=== PATIENT | female | born 1940 | race American Indian/Alaskan Native ===

== ENCOUNTER 2016-09-07 21:08 | Inpatient (IN) | payer MEDICARE, OTHER ==
[2016-09-07] MEDS ORDERED: NACL 0.9% 1000 ML 1,000 ML IV ONE (22:36)
[2016-09-07 22:43] LABS: Hematocrit 41.1 % (30.3-42.9); Hemoglobin 12.7 gm/dl (10.1-14.3); Mean Corpuscular HGB Conc 31 % (30-34); Mean Corpuscular Hemoglobin 29 pg (28-32); Mean Corpuscular Volume 93 fl (79-97); Platelet Count 204 K/mm3 (140-440); Red Blood Count 4.42 M/mm3 (3.65-5.03); Red Cell Distribution Width 14.6 % (13.2-15.2); White Blood Count 9.1 K/mm3 (4.5-11.0)
[2016-09-07 22:45] LABS: Basophils % (Auto) 0.4 % (0.0-1.8); Eosinophils % (Auto) 0.4 % (0.0-4.3)
[2016-09-07 23:33] LABS: Alanine Aminotransferase 10 units/L (7-56); Albumin 3.7 g/dL (3.9-5); Albumin/Globulin Ratio 1.1 %; Alkaline Phosphatase 57 units/L (35-129); Anion Gap 23 mmol/L; BUN/Creatinine Ratio 22.85; Bilirubin,Total 0.3 mg/dL (0.1-1.2); Blood Urea Nitrogen 16 mg/dL (7-17); Calcium 10.1 mg/dL (8.4-10.2); Carbon Dioxide 16 mmol/L (22-30); Chloride 101.6 mmol/L (98-107); Glucose 102 mg/dL (65-100); Magnesium 2.2 mg/dL (1.7-2.3); Potassium 4.1 mmol/L (3.6-5.0); Sodium 136 mmol/L (137-145); Total Protein 7.1 g/dL (6.3-8.2)
--- NOTE | 2016-09-08 01:14 | Cat Scan Report ---
FINAL REPORT PROCEDURE: CT HEAD/BRAIN WO CON TECHNIQUE: Computerized tomography of the head was performed without contrast material. HISTORY: ams COMPARISON: 03/26/2016 FINDINGS: Skull and scalp: Normal. Paranasal sinuses: Normal. Ventricles and subarachnoid spaces: There is advanced central and cortical atrophy. There is no hydrocephalus or asymmetry.. Cerebrum: No evidence of hemorrhage, acute infarction or mass. There is chronic deep white matter ischemic gliosis bilaterally. Cerebellum and brainstem: No evidence of hemorrhage, acute infarction or mass. Vasculature: Normal. Comments: None. IMPRESSION: There are chronic involutional changes. There is no acute abnormality.
--- NOTE | 2016-09-08 01:17 | Emergency Department Report ---
ED Altered Mental Status HPI - General Chief Complaint: Altered Mental Status Stated Complaint: MH EVAL/AMS Time Seen by Provider: 09/07/16 22:30 Source: EMS Mode of arrival: Stretcher Limitations: Altered Mental Status - History of Present Illness Initial Comments: 75-year-old female with a past medical history of dementia, hypertension, and multiple myeloma presents to the hospital with altered mental status. Patient is currently nonverbal and will not follow commands. She is however alert. Per EMS record patient was found at the personal care slumped in over in the chair leaning to the left lung notable left-sided facial droop and drooling. Patient was conscious but unresponsive. Patient difficult to follow commands. Staff reports that this is an alteration from her normal baseline set on 7:45 PM. Patient normally walks and responds appropriately. Patient came more responsive in route but still confused. EMS recorded a blood pressure 90/46 with repeat 96/42. Pt received 450ml normal saline in route. - Related Data Home Medications Medication Instructions Recorded Confirmed Last Taken Quetiapine Fumarate [SEROquel] 25 mg PO QHS 11/06/13 03/26/16 11/05/13 Aspirin [Aspirin BABY CHEW TAB] 81 mg PO QDAY 02/20/16 03/26/16 Unknown Mv-Mn/Iron/FA/Herbal Cmplx#190 1 each PO DAILY 02/20/16 03/26/16 Unknown [Vitamin D3 Complete Caplet] Previous Rx's Medication Instructions Recorded Last Taken Type Ciprofloxacin HCl [Ciprofloxacin 500 mg PO Q12H #10 tab 03/28/16 Unknown Rx TAB] metroNIDAZOLE [Flagyl TAB] 500 mg PO Q8HR #15 tablet 03/28/16 Unknown Rx Allergies Allergy/AdvReac Type Severity Reaction Status Date / Time No Known Allergies Allergy Verified 06/18/15 09:38 ED Review of Systems ROS: Stated complaint: MH EVAL/AMS Other details as noted in HPI Comment: Unobtainable due to pts medical conditions (ams, nonverbal) ED Past Medical Hx - Past Medical History Previous Medical History?: Yes Hx Hypertension: Yes Hx Heart Attack/AMI: No Hx Congestive Heart Failure: No Hx Diabetes: No Hx Deep Vein Thrombosis: No Hx Pulmonary Embolism: No Hx GERD: No Hx Liver Disease: No Hx Renal Disease: No Hx Sickle Cell Disease: No Hx Arthritis: Yes Hx Seizures: No Hx Kidney Stones: No Hx Asthma: No Hx COPD: No Hx Tuberculosis: No Hx Dementia: Yes Hx HIV: No Additional medical history: Bone Cancer (Son states she is in remission.) - Surgical History Past Surgical History?: Yes Hx Coronary Stent: No Hx Open Heart Surgery: No Hx Pacemaker: No Hx Internal Defibrillator: No Hx Cholecystectomy: No Hx Appendectomy: No Hx Breast Surgery: No Additional Surgical History: right knee surgery - Social History Smoking Status: Unknown if ever smoked - Medications Home Medications: Home Medications Medication Instructions Recorded Confirmed Last Taken Type Quetiapine Fumarate [SEROquel] 25 mg PO QHS 11/06/13 03/26/16 11/05/13 History Aspirin [Aspirin BABY CHEW TAB] 81 mg PO QDAY 02/20/16 03/26/16 Unknown History Mv-Mn/Iron/FA/Herbal Cmplx#190 1 each PO DAILY 02/20/16 03/26/16 Unknown History [Vitamin D3 Complete Caplet] Ciprofloxacin HCl [Ciprofloxacin 500 mg PO Q12H #10 tab 03/28/16 Unknown Rx TAB] metroNIDAZOLE [Flagyl TAB] 500 mg PO Q8HR #15 tablet 03/28/16 Unknown Rx ED Physical Exam - General Limitations: Altered Mental Status - Other Other exam information: General: No limitations, patient is alert in no acute distress Head exam: Atraumatic, normocephalic Eyes exam: Normal appearance, pupils equal reactive to light, extraocular movements intact ENT: Moist mucous membrane, normal oropharynx Neck exam: Normal inspection, full range of motion, no meningismus nontender Respiratory exam: Clear to auscultation bilateral, no wheezes, rales, crackles Cardiovascular: Normal rate and rhythm, normal heart sounds Abdomen: Soft, nondistended, and nontender, with normal bowel sounds, no rebound, or guarding Extremity: Full range of motion normal inspection no deformity Back: Normal Inspection, full range of motion, no tenderness Neurologic: Alert, agitated, nonverbal, no facial droop, equal strength bilaterally, would not follow commands, sensation grossly intact Psychiatric: normal affect, normal mood Skin: Warm, dry, intact ED Course Vital Signs 09/07/16 22:03 Temperature 98.3 F Pulse Rate 81 Respiratory 18 Rate Blood Pressure 113/64 [Left] O2 Sat by Pulse 99 Oximetry - Lab Data Result diagrams: 09/07/16 22:19 09/07/16 22:19 Lab Results 09/07/16 09/07/16 09/07/16 Range/Units 22:19 22:19 22:19 WBC 9.1 (4.5-11.0) K/mm3 RBC 4.42 (3.65-5.03) M/mm3 Hgb 12.7 (10.1-14.3) gm/dl Hct 41.1 (30.3-42.9) % MCV 93 (79-97) fl MCH 29 (28-32) pg MCHC 31 (30-34) % RDW 14.6 (13.2-15.2) % Plt Count 204 (140-440) K/mm3 Lymph % (Auto) 10.6 L (13.4-35.0) % [place] % (Auto) 5.5 (0.0-7.3) % Eos % (Auto) 0.4 (0.0-4.3) % Baso % (Auto) 0.4 (0.0-1.8) % Lymph # 1.0 L (1.2-5.4) K/mm3 [place] # 0.5 (0.0-0.8) K/mm3 Eos # 0.0 (0.0-0.4) K/mm3 Baso # 0.0 (0.0-0.1) K/mm3 Seg Neutrophils % 83.1 H (40.0-70.0) % Seg Neutrophils # 7.6 (1.8-7.7) K/mm3 Sodium 136 L (137-145) mmol/L Potassium 4.1 (3.6-5.0) mmol/L Chloride 101.6 (98-107) mmol/L Carbon Dioxide 16 L (22-30) mmol/L Anion Gap 23 mmol/L BUN 16 (7-17) mg/dL Creatinine 0.7 (0.7-1.2) mg/dL Estimated GFR > 60 ml/min BUN/Creatinine Ratio 22.85 % Glucose 102 H (65-100) mg/dL Lactic Acid 2.3 H* (0.7-2.0) mmol/L Calcium 10.1 (8.4-10.2) mg/dL Magnesium 2.2 (1.7-2.3) mg/dL Total Bilirubin 0.3 (0.1-1.2) mg/dL AST 20 (5-40) units/L ALT 10 (7-56) units/L Alkaline Phosphatase 57 (35-129) units/L Total Creatine Kinase (30-135) units/L CK-MB (CK-2) (0.0-4.0) ng/mL CK-MB (CK-2) Rel Index (0-4) Troponin T (0.00-0.029) ng/mL Total Protein 7.1 (6.3-8.2) g/dL Albumin 3.7 L (3.9-5) g/dL Albumin/Globulin Ratio 1.1 % TSH (0.270-4.200) mlU/mL Urine Color (Yellow) Urine Turbidity (Clear) Urine pH (5.0-7.0) Ur Specific [place] (1.003-1.030) Urine Protein (Negative) mg/dL Urine Glucose (UA) (Negative) mg/dL Urine Ketones (Negative) mg/dL Urine Blood (Negative) Urine Nitrite (Negative) Urine Bilirubin (Negative) Urine Urobilinogen (<2.0) mg/dL Ur Leukocyte Esterase (Negative) Urine WBC (Auto) (0.0-6.0) /HPF Urine RBC (Auto) (0.0-6.0) /HPF U Epithel Cells (Auto) (0-13.0) /HPF Urine Mucus /HPF Salicylates (2.8-20.0) mg/dL Urine Opiates Screen Urine Methadone Screen Acetaminophen (10.0-30.0) ug/mL Ur Barbiturates Screen Ur Phencyclidine Scrn Ur Amphetamines Screen U Benzodiazepines Scrn Urine Cocaine Screen U Marijuana (THC) Screen Drugs of Abuse Note Plasma/Serum Alcohol (0-0.07) gm% 09/07/16 09/07/16 09/07/16 Range/Units 22:19 22:19 22:19 WBC (4.5-11.0) K/mm3 RBC (3.65-5.03) M/mm3 Hgb (10.1-14.3) gm/dl Hct (30.3-42.9) % MCV (79-97) fl MCH (28-32) pg MCHC (30-34) % RDW (13.2-15.2) % Plt Count (140-440) K/mm3 Lymph % (Auto) (13.4-35.0) % [place] % (Auto) (0.0-7.3) % Eos % (Auto) (0.0-4.3) % Baso % (Auto) (0.0-1.8) % Lymph # (1.2-5.4) K/mm3 [place] # (0.0-0.8) K/mm3 Eos # (0.0-0.4) K/mm3 Baso # (0.0-0.1) K/mm3 Seg Neutrophils % (40.0-70.0) % Seg Neutrophils # (1.8-7.7) K/mm3 Sodium (137-145) mmol/L Potassium (3.6-5.0) mmol/L Chloride (98-107) mmol/L Carbon Dioxide (22-30) mmol/L Anion Gap mmol/L BUN (7-17) mg/dL Creatinine (0.7-1.2) mg/dL Estimated GFR ml/min BUN/Creatinine Ratio % Glucose (65-100) mg/dL Lactic Acid (0.7-2.0) mmol/L Calcium (8.4-10.2) mg/dL Magnesium (1.7-2.3) mg/dL Total Bilirubin (0.1-1.2) mg/dL AST (5-40) units/L ALT (7-56) units/L Alkaline Phosphatase (35-129) units/L Total Creatine Kinase (30-135) units/L CK-MB (CK-2) (0.0-4.0) ng/mL CK-MB (CK-2) Rel Index (0-4) Troponin T (0.00-0.029) ng/mL Total Protein (6.3-8.2) g/dL Albumin (3.9-5) g/dL Albumin/Globulin Ratio % TSH 5.080 H (0.270-4.200) mlU/mL Urine Color (Yellow) Urine Turbidity (Clear) Urine pH (5.0-7.0) Ur Specific [place] (1.003-1.030) Urine Protein (Negative) mg/dL Urine Glucose (UA) (Negative) mg/dL Urine Ketones (Negative) mg/dL Urine Blood (Negative) Urine Nitrite (Negative) Urine Bilirubin (Negative) Urine Urobilinogen (<2.0) mg/dL Ur Leukocyte Esterase (Negative) Urine WBC (Auto) (0.0-6.0) /HPF Urine RBC (Auto) (0.0-6.0) /HPF U Epithel Cells (Auto) (0-13.0) /HPF Urine Mucus /HPF Salicylates < 0.3 L (2.8-20.0) mg/dL Urine Opiates Screen Urine Methadone Screen Acetaminophen < 15.0 (10.0-30.0) ug/mL Ur Barbiturates Screen Ur Phencyclidine Scrn Ur Amphetamines Screen U Benzodiazepines Scrn Urine Cocaine Screen U Marijuana (THC) Screen Drugs of Abuse Note Plasma/Serum Alcohol (0-0.07) gm% 09/07/16 09/07/16 09/08/16 Range/Units 22:19 22:19 00:10 WBC (4.5-11.0) K/mm3 RBC (3.65-5.03) M/mm3 Hgb (10.1-14.3) gm/dl Hct (30.3-42.9) % MCV (79-97) fl MCH (28-32) pg MCHC (30-34) % RDW (13.2-15.2) % Plt Count (140-440) K/mm3 Lymph % (Auto) (13.4-35.0) % [place] % (Auto) (0.0-7.3) % Eos % (Auto) (0.0-4.3) % Baso % (Auto) (0.0-1.8) % Lymph # (1.2-5.4) K/mm3 [place] # (0.0-0.8) K/mm3 Eos # (0.0-0.4) K/mm3 Baso # (0.0-0.1) K/mm3 Seg Neutrophils % (40.0-70.0) % Seg Neutrophils # (1.8-7.7) K/mm3 Sodium (137-145) mmol/L Potassium (3.6-5.0) mmol/L Chloride (98-107) mmol/L Carbon Dioxide (22-30) mmol/L Anion Gap mmol/L BUN (7-17) mg/dL Creatinine (0.7-1.2) mg/dL Estimated GFR ml/min BUN/Creatinine Ratio % Glucose (65-100) mg/dL Lactic Acid (0.7-2.0) mmol/L Calcium (8.4-10.2) mg/dL Magnesium (1.7-2.3) mg/dL Total Bilirubin (0.1-1.2) mg/dL AST (5-40) units/L ALT (7-56) units/L Alkaline Phosphatase (35-129) units/L Total Creatine Kinase 80 (30-135) units/L CK-MB (CK-2) 1.3 (0.0-4.0) ng/mL CK-MB (CK-2) Rel Index 1.6 (0-4) Troponin T < 0.010 (0.00-0.029) ng/mL Total Protein (6.3-8.2) g/dL Albumin (3.9-5) g/dL Albumin/Globulin Ratio % TSH (0.270-4.200) mlU/mL Urine Color Yellow (Yellow) Urine Turbidity Clear (Clear) Urine pH 6.0 (5.0-7.0) Ur Specific [place] 1.017 (1.003-1.030) Urine Protein <15 mg/dl (Negative) mg/dL Urine Glucose (UA) Neg (Negative) mg/dL Urine Ketones Neg (Negative) mg/dL Urine Blood Sm (Negative) Urine Nitrite Neg (Negative) Urine Bilirubin Neg (Negative) Urine Urobilinogen 2.0 (<2.0) mg/dL Ur Leukocyte Esterase Neg (Negative) Urine WBC (Auto) < 1.0 (0.0-6.0) /HPF Urine RBC (Auto) 1.0 (0.0-6.0) /HPF U Epithel Cells (Auto) 1.0 (0-13.0) /HPF Urine Mucus Few /HPF Salicylates (2.8-20.0) mg/dL Urine Opiates Screen Urine Methadone Screen Acetaminophen (10.0-30.0) ug/mL Ur Barbiturates Screen Ur Phencyclidine Scrn Ur Amphetamines Screen U Benzodiazepines Scrn Urine Cocaine Screen U Marijuana (THC) Screen Drugs of Abuse Note Plasma/Serum Alcohol < 0.01 (0-0.07) gm% 09/08/16 09/08/16 Range/Units 00:10 01:18 WBC (4.5-11.0) K/mm3 RBC (3.65-5.03) M/mm3 Hgb (10.1-14.3) gm/dl Hct (30.3-42.9) % MCV (79-97) fl MCH (28-32) pg MCHC (30-34) % RDW (13.2-15.2) % Plt Count (140-440) K/mm3 Lymph % (Auto) (13.4-35.0) % [place] % (Auto) (0.0-7.3) % Eos % (Auto) (0.0-4.3) % Baso % (Auto) (0.0-1.8) % Lymph # (1.2-5.4) K/mm3 [place] # (0.0-0.8) K/mm3 Eos # (0.0-0.4) K/mm3 Baso # (0.0-0.1) K/mm3 Seg Neutrophils % (40.0-70.0) % Seg Neutrophils # (1.8-7.7) K/mm3 Sodium (137-145) mmol/L Potassium (3.6-5.0) mmol/L Chloride (98-107) mmol/L Carbon Dioxide (22-30) mmol/L Anion Gap mmol/L BUN (7-17) mg/dL Creatinine (0.7-1.2) mg/dL Estimated GFR ml/min BUN/Creatinine Ratio % Glucose (65-100) mg/dL Lactic Acid 2.1 H* (0.7-2.0) mmol/L Calcium (8.4-10.2) mg/dL Magnesium (1.7-2.3) mg/dL Total Bilirubin (0.1-1.2) mg/dL AST (5-40) units/L ALT (7-56) units/L Alkaline Phosphatase (35-129) units/L Total Creatine Kinase (30-135) units/L CK-MB (CK-2) (0.0-4.0) ng/mL CK-MB (CK-2) Rel Index (0-4) Troponin T (0.00-0.029) ng/mL Total Protein (6.3-8.2) g/dL Albumin (3.9-5) g/dL Albumin/Globulin Ratio % TSH (0.270-4.200) mlU/mL Urine Color (Yellow) Urine Turbidity (Clear) Urine pH (5.0-7.0) Ur Specific [place] (1.003-1.030) Urine Protein (Negative) mg/dL Urine Glucose (UA) (Negative) mg/dL Urine Ketones (Negative) mg/dL Urine Blood (Negative) Urine Nitrite (Negative) Urine Bilirubin (Negative) Urine Urobilinogen (<2.0) mg/dL Ur Leukocyte Esterase (Negative) Urine WBC (Auto) (0.0-6.0) /HPF Urine RBC (Auto) (0.0-6.0) /HPF U Epithel Cells (Auto) (0-13.0) /HPF Urine Mucus /HPF Salicylates (2.8-20.0) mg/dL Urine Opiates Screen Presumptive negative Urine Methadone Screen Presumptive negative Acetaminophen (10.0-30.0) ug/mL Ur Barbiturates Screen Presumptive negative Ur Phencyclidine Scrn Presumptive negative Ur Amphetamines Screen Presumptive negative U Benzodiazepines Scrn Presumptive negative Urine Cocaine Screen Presumptive negative U Marijuana (THC) Screen Presumptive negative Drugs of Abuse Note Disclamer Plasma/Serum Alcohol (0-0.07) gm% - EKG Data -: EKG Interpreted by Me (nsr 83, nonspecific t wave abnl) When compared to previous EKG there are: no significant change (comapred to 03/26) - Radiology Data Radiology results: report reviewed (ct head: chronic changes, naf) - Medical Decision Making Patient has underlying dementia with acute mental status change with the episode of minimal responsiveness. ED workup shows abnormali tsh and mildly elevated lactic acid with a bicarbonate of 16. No signs of acute infection at this time. EKG unchanged. Patient admitted to the hospitalist for further evaluation. - Differential Diagnosis encephalopathy, dementia, UTI, CVA, ICH, syncope, arrhythmia Critical Care Time: No Critical care attestation.: If time is entered above; I have spent that time in minutes in the direct care of this critically ill patient, excluding procedure time. ED Disposition Clinical Impression: Altered mental status, Dementia Disposition: OP ADMITTED IP TO THIS HOSP Is pt being admited?: Yes Condition: Stable Time of Disposition: 01:47 (Dr Lawrence/hosp)
[2016-09-08 01:36] LABS: Bilirubin,Urine NEG (Negative); Blood,Urine SM (Negative); Ketones,Urine NEG (Negative); Leukocyte Esterase,Urine NEG (Negative); Mucus,Urine FEW /HPF; Nitrite,Urine NEG (Negative); Protein,Urine <15 mg/dL mg/dL (Negative); WBC,Urine < 1.0 /HPF (0.0-6.0)
[2016-09-08 01:44] LABS: Urine Drugs of Abuse Note Disclamer
[2016-09-08 01:46] LABS: Creatine Kinase MB 1.3 ng/mL (0.0-4.0)
[2016-09-08 02:11] LABS: Creatine Kinase 80 units/L (30-135)
[2016-09-08] MEDS ORDERED: ZOFRAN IV PRN (03:42)
[2016-09-08] MEDS ORDERED: MILK OF MAGNESIA PO PRN (03:42)
[2016-09-08] MEDS ORDERED: DULCOLAX PR PRN (03:42)
--- NOTE | 2016-09-08 03:50 | History and Physical Report ---
History of Present Illness Date of examination: 09/08/16 History of present illness: Patient is a 75-year-old woman with a history of hypertension, multiple myeloma , dementia was brought to the emergency room per the emergency room physician for facial droop slumped over on a chair. Patient is unable to give a history, nonverbal. Review of system is unobtainable PAST SURGICAL HISTORY: Unknown SOCIAL HISTORY: Unknown FAMILY HISTORY: Unknown Medications and Allergies Allergies Allergy/AdvReac Type Severity Reaction Status Date / Time No Known Allergies Allergy Verified 06/18/15 09:38 Home Medications Medication Instructions Recorded Confirmed Last Taken Type Quetiapine Fumarate [SEROquel] 25 mg PO QHS 11/06/13 03/26/16 11/05/13 History Aspirin [Aspirin BABY CHEW TAB] 81 mg PO QDAY 02/20/16 03/26/16 Unknown History Mv-Mn/Iron/FA/Herbal Cmplx#190 1 each PO DAILY 02/20/16 03/26/16 Unknown History [Vitamin D3 Complete Caplet] Ciprofloxacin HCl [Ciprofloxacin 500 mg PO Q12H #10 tab 03/28/16 Unknown Rx TAB] metroNIDAZOLE [Flagyl TAB] 500 mg PO Q8HR #15 tablet 03/28/16 Unknown Rx Active Meds: Active Medications Acetaminophen (Tylenol) 650 mg PO Q4H PRN PRN Reason: Pain MILD(1-3)/Fever >100.5/JIMÉNEZ Bisacodyl (Dulcolax) 10 mg OK QDAY PRN PRN Reason: Constipation unrelieved by MOM Enoxaparin Sodium (Lovenox) 30 mg SUB-Q QDAY EFE Magnesium Hydroxide (Milk Of Magnesia) 30 ml PO Q4H PRN PRN Reason: Constipation Ondansetron HCl (Zofran) 4 mg IV Q8H PRN PRN Reason: N/V unrelieved by Reglan Exam - Physical Exam Narrative exam: Gen. appearance: Patient lying in bed, no apparent distress HEENT: Normocephalic, atraumatic, pupils equally round and reactive to light, extraocular movement intact, and no sclericterus,. No JVD or thyromegaly or nodule,neck supple, no carotid bruit ,mucous membranes moist, no exudate or erythema Heart: S1, S2, regular rate and rhythm Lungs: Clear to auscultation bilaterally, breathing comfortable Abdomen: Positive bowel sounds, nontender, nondistended, no organomegaly Extremity: No edema, cyanosis, clubbing Skin: No rash, nodules, warm, dry Neuro: Difficult to assess, - Constitutional Vitals: Temp Pulse Resp BP Pulse Ox 98.3 F 81 18 113/64 99 09/07/16 22:03 09/07/16 22:03 09/07/16 22:03 09/07/16 22:03 09/07/16 22:03 Results - Labs CBC & Chem 7: 09/07/16 22:19 09/07/16 22:19 Labs: Abnormal lab results 09/07/16 09/07/16 09/07/16 Range/Units 22:19 22:19 22:19 Lymph % (Auto) 10.6 L (13.4-35.0) % Lymph # 1.0 L (1.2-5.4) K/mm3 Seg Neutrophils % 83.1 H (40.0-70.0) % Sodium 136 L (137-145) mmol/L Carbon Dioxide 16 L (22-30) mmol/L Glucose 102 H (65-100) mg/dL Lactic Acid 2.3 H* (0.7-2.0) mmol/L Albumin 3.7 L (3.9-5) g/dL TSH (0.270-4.200) mlU/mL Salicylates (2.8-20.0) mg/dL 09/07/16 09/07/16 09/08/16 Range/Units 22:19 22:19 01:18 Lymph % (Auto) (13.4-35.0) % Lymph # (1.2-5.4) K/mm3 Seg Neutrophils % (40.0-70.0) % Sodium (137-145) mmol/L Carbon Dioxide (22-30) mmol/L Glucose (65-100) mg/dL Lactic Acid 2.1 H* (0.7-2.0) mmol/L Albumin (3.9-5) g/dL TSH 5.080 H (0.270-4.200) mlU/mL Salicylates < 0.3 L (2.8-20.0) mg/dL - Imaging and Cardiology EKG: image reviewed CT Scan - head: report reviewed Assessment and Plan Possible TIA Hypertension Multiple myeloma Admit to medicine Obtain MRI of the head, d-dimer Start aspirin, statin Continue appropriate outpatient medications Start DVT prophylaxis
[2016-09-08] MEDS ORDERED: APRESOLINE IV PRN (03:52)
--- NOTE | 2016-09-08 09:25 | Admit Criteria Form ---
Admission Criteria Documentation: MENTAL STATUS CHANGE Clinical Indications for Inpatient Care (Place 'X' for any and all applicable criteria): Ongoing inpatient care may be needed for ANY ONE of the following(1)(2)(3)(5)(6) : [X ]I. Suspected serious etiology (eg, medical disorder, [employer] event) of mental status change [ ]II. Danger to self or others not manageable at lower level of care [ ]III. Grave disability (eg, inability to perform self care necessary at lower level of care) [ ]IV. Agitation or inappropriate behavior interfering with care for primary condition (eg, attempting to discontinue lines or drains prematurely, unable to cooperate with respiratory care) [ ]V. Delirium [A] [D][E] as described by ANY ONE of the following(26): [ ]a) Delirium due to alcohol or sedative [F] withdrawal [ ]b) Delirium of uncertain etiology that has not responded to appropriate empiric treatment [ ]c) Delirium that prevents performance of a life-sustaining function (eg, feeding or hydrating oneself) [ ]. General contraindications and/or Inappropriate clinical situations for Observational Care in patients with Mental Status Change, when ANY ONE of the following is required: [ ]a) Prediction of prolongation of LOS based on ANY ONE of the following may be considered as a contraindication for observational care 2, 3, 4, 5, 6, 7, 8, 9, 10, 11 [ ]i) Age > 65 yrs. [ ]ii) Patient arriving by ambulance [ ]iii) Patient with high acuity [ ]iv) Patient requiring vital sign monitoring [ ]v) Patient on IV medication [ ]b) Systolic blood pressures 180mmHg 3,12 [ ]c) Patient with altered mental status including delirium and other alteration of consciousness, (3) [ ]d) Patient whose discharge disposition will be to a prison home or rehabilitation home should not be managed in Emergency Department Observation Unit. CMS rule requires 3 days hospital stay before such placement.3,13 [ ]e) Patient with failure to thrive due to broad array of etiologies 3,16,17 [ ]f) Inability to ambulate 3,14 Extended stay beyond goal length of stay for the primary condition may be needed until ALL of the following are present(3)(5): [ ]a) Underlying medical etiology of mental status change is absent, or has been established and adequately treated [ ]b) Danger to self or others is absent or manageable at lower level of care. [ ]c) Behavior crisis management, including physical or chemical restraints, is not required or available at lower level of car [ ]d) Substance or alcohol withdrawal is absent or manageable at lower level of care. [ ]e) Behavioral symptoms (eg, agitation, somnolence, inappropriate behavior) are absent, or are manageable at lower level of care. The original [facility] [employer] content created by [facility] has been revised. The portions of the content which have been revised are identified through the use of italic text or in bold, and [facility] has neither reviewed nor approved the modified material. All other unmodified content is copyright [facility]. Please see references footnoted in the original [facility] edition 2016 Admission Criteria Met: Yes
[2016-09-08] MEDS: BABY ASPIRIN PO SCH (09:43)
[2016-09-08] MEDS: LOVENOX SUB-Q SCH (09:43)
[2016-09-08] MEDS ORDERED: LOVENOX SUB-Q SCH (10:00)
[2016-09-08] MEDS: ZOCOR PO SCH (22:49)
[2016-09-09 07:45] LABS: Basophils % (Auto) 1.2 % (0.0-1.8); Eosinophils % (Auto) 2.6 % (0.0-4.3); Hematocrit 39.6 % (30.3-42.9); Mean Corpuscular HGB Conc 33 % (30-34); Mean Corpuscular Hemoglobin 28 pg (28-32); Mean Corpuscular Volume 86 fl (79-97); Platelet Count 235 K/mm3 (140-440); Red Blood Count 4.62 M/mm3 (3.65-5.03); White Blood Count 4.5 K/mm3 (4.5-11.0)
[2016-09-09 08:13] LABS: Anion Gap 20 mmol/L; Blood Urea Nitrogen 9 mg/dL (7-17); Calcium 9.9 mg/dL (8.4-10.2); Carbon Dioxide 22 mmol/L (22-30); Chloride 103.7 mmol/L (98-107); Glucose 81 mg/dL (65-100); Potassium 4.4 mmol/L (3.6-5.0); Sodium 141 mmol/L (137-145)
[2016-09-09] MEDS: BABY ASPIRIN PO SCH (10:59)
[2016-09-09] MEDS: LOVENOX SUB-Q SCH (10:59)
[2016-09-09] MEDS: TYLENOL PO PRN (22:51)
[2016-09-09] MEDS: ZOCOR PO SCH (22:51)
--- NOTE | 2016-09-10 06:42 | Progress Note ---
Assessment and Plan - Patient Problems (1) CVA (cerebral vascular accident) Current Visit: Yes Status: Acute Qualifiers: CVA mechanism: C Precerebral and cerebral artery: P Laterality of affected vessel: L Plan to address problem: Stroke protocol: CT Hear, MRI, supportive care, antiplatelet therapy. (2) HTN (hypertension) Current Visit: Yes Status: Acute Qualifiers: Hypertension type: H Plan to address problem: monitor bp q shift continue current therapy (3) Multiple myeloma Current Visit: Yes Status: Acute Qualifiers: Multiple myeloma remission status: M Plan to address problem: continue current care. (4) DVT prophylaxis Current Visit: No Status: Acute History Interval history: Pt lying in bed, no reported nursing events. Pt aphasic, Hospitalist Physical - Constitutional Vitals: Temp Pulse Resp BP Pulse Ox 98.2 F 84 18 131/60 96 09/10/16 05:08 09/10/16 05:08 09/10/16 05:08 09/10/16 05:08 09/10/16 05:08 General appearance: Present: mild distress - EENT Eyes: Present: PERRL ENT: hearing intact - Neck Neck: Present: supple - Respiratory Respiratory: bilateral: diminished - Cardiovascular Rhythm: regular Heart Sounds: Present: S1 & S2 - Extremities Extremities: no ischemia Peripheral Pulses: within normal limits - Abdominal General gastrointestinal: soft, non-tender, non-distended - Integumentary Integumentary: Present: clear, dry - Neurologic Neurologic: no CNII-XII intact, focal deficits, no moves all extremities, no gait normal Results - Labs CBC & Chem 7: 09/09/16 06:58 09/09/16 06:58 Labs: Laboratory Last Values WBC 4.5 K/mm3 (4.5-11.0) 09/09/16 06:58 RBC 4.62 M/mm3 (3.65-5.03) 09/09/16 06:58 Hgb 13.0 gm/dl (10.1-14.3) 09/09/16 06:58 Hct 39.6 % (30.3-42.9) 09/09/16 06:58 MCV 86 fl (79-97) D 09/09/16 06:58 MCH 28 pg (28-32) 09/09/16 06:58 MCHC 33 % (30-34) 09/09/16 06:58 RDW 14.0 % (13.2-15.2) 09/09/16 06:58 Plt Count 235 K/mm3 (140-440) 09/09/16 06:58 Lymph % (Auto) 31.3 % (13.4-35.0) 09/09/16 06:58 [place] % (Auto) 7.1 % (0.0-7.3) 09/09/16 06:58 Eos % (Auto) 2.6 % (0.0-4.3) 09/09/16 06:58 Baso % (Auto) 1.2 % (0.0-1.8) 09/09/16 06:58 Lymph # 1.4 K/mm3 (1.2-5.4) 09/09/16 06:58 [place] # 0.3 K/mm3 (0.0-0.8) 09/09/16 06:58 Eos # 0.1 K/mm3 (0.0-0.4) 09/09/16 06:58 Baso # 0.1 K/mm3 (0.0-0.1) 09/09/16 06:58 Seg Neutrophils % 57.8 % (40.0-70.0) 09/09/16 06:58 Seg Neutrophils # 2.6 K/mm3 (1.8-7.7) 09/09/16 06:58 D-Dimer 400.38 ng/mlDDU (0-234) H 09/08/16 04:06 Sodium 141 mmol/L (137-145) 09/09/16 06:58 Potassium 4.4 mmol/L (3.6-5.0) 09/09/16 06:58 Chloride 103.7 mmol/L (98-107) 09/09/16 06:58 Carbon Dioxide 22 mmol/L (22-30) 09/09/16 06:58 Anion Gap 20 mmol/L 09/09/16 06:58 BUN 9 mg/dL (7-17) 09/09/16 06:58 Creatinine 0.6 mg/dL (0.7-1.2) L 09/09/16 06:58 Estimated GFR > 60 ml/min 09/09/16 06:58 BUN/Creatinine Ratio 15.00 % 09/09/16 06:58 Glucose 81 mg/dL (65-100) 09/09/16 06:58 Lactic Acid 2.1 mmol/L (0.7-2.0) H* 09/08/16 01:18 Calcium 9.9 mg/dL (8.4-10.2) 09/09/16 06:58 Magnesium 2.2 mg/dL (1.7-2.3) 09/07/16 22:19 Total Bilirubin 0.3 mg/dL (0.1-1.2) 09/07/16 22:19 AST 20 units/L (5-40) 09/07/16 22:19 ALT 10 units/L (7-56) 09/07/16 22:19 Alkaline Phosphatase 57 units/L (35-129) 09/07/16 22:19 Total Creatine Kinase 80 units/L (30-135) 09/07/16 22:19 CK-MB (CK-2) 1.3 ng/mL (0.0-4.0) 09/07/16 22:19 CK-MB (CK-2) Rel Index 1.6 (0-4) 09/07/16 22:19 Troponin T < 0.010 ng/mL (0.00-0.029) 09/07/16 22:19 Total Protein 7.1 g/dL (6.3-8.2) 09/07/16 22:19 Albumin 3.7 g/dL (3.9-5) L 09/07/16 22:19 Albumin/Globulin Ratio 1.1 % 09/07/16 22:19 TSH 5.080 mlU/mL (0.270-4.200) H 09/07/16 22:19 Urine Color Yellow (Yellow) 09/08/16 00:10 Urine Turbidity Clear (Clear) 09/08/16 00:10 Urine pH 6.0 (5.0-7.0) 09/08/16 00:10 Ur Specific [place] 1.017 (1.003-1.030) 09/08/16 00:10 Urine Protein <15 mg/dl mg/dL (Negative) 09/08/16 00:10 Urine Glucose (UA) Neg mg/dL (Negative) 09/08/16 00:10 Urine Ketones Neg mg/dL (Negative) 09/08/16 00:10 Urine Blood Sm (Negative) 09/08/16 00:10 Urine Nitrite Neg (Negative) 09/08/16 00:10 Urine Bilirubin Neg (Negative) 09/08/16 00:10 Urine Urobilinogen 2.0 mg/dL (<2.0) 09/08/16 00:10 Ur Leukocyte Esterase Neg (Negative) 09/08/16 00:10 Urine WBC (Auto) < 1.0 /HPF (0.0-6.0) 09/08/16 00:10 Urine RBC (Auto) 1.0 /HPF (0.0-6.0) 09/08/16 00:10 U Epithel Cells (Auto) 1.0 /HPF (0-13.0) 09/08/16 00:10 Urine Mucus Few /HPF 09/08/16 00:10 Salicylates < 0.3 mg/dL (2.8-20.0) L 09/07/16 22:19 Urine Opiates Screen Presumptive negative 09/08/16 00:10 Urine Methadone Screen Presumptive negative 09/08/16 00:10 Acetaminophen < 15.0 ug/mL (10.0-30.0) 09/07/16 22:19 Ur Barbiturates Screen Presumptive negative 09/08/16 00:10 Ur Phencyclidine Scrn Presumptive negative 09/08/16 00:10 Ur Amphetamines Screen Presumptive negative 09/08/16 00:10 U Benzodiazepines Scrn Presumptive negative 09/08/16 00:10 Urine Cocaine Screen Presumptive negative 09/08/16 00:10 U Marijuana (THC) Screen Presumptive negative 09/08/16 00:10 Drugs of Abuse Note Disclamer 09/08/16 00:10 Plasma/Serum Alcohol < 0.01 gm% (0-0.07) 09/07/16 22:19
[2016-09-10] MEDS: LOVENOX SUB-Q SCH (14:24)
--- NOTE | 2016-09-10 17:49 | Progress Note ---
Assessment and Plan - Patient Problems (1) CVA (cerebral vascular accident) Current Visit: Yes Status: Acute Qualifiers: CVA mechanism: C Precerebral and cerebral artery: P Laterality of affected vessel: L Plan to address problem: Stroke protocol: CT Hear, MRI, supportive care, antiplatelet therapy. (2) HTN (hypertension) Current Visit: Yes Status: Acute Qualifiers: Hypertension type: H Plan to address problem: monitor bp q shift continue current therapy (3) Multiple myeloma Current Visit: Yes Status: Acute Qualifiers: Multiple myeloma remission status: M Plan to address problem: continue current care. (4) DVT prophylaxis Current Visit: No Status: Acute History Interval history: Pt lying in bed, no reported nursing events. Pt more alert today, pt speaking in short sentences. Hospitalist Physical - Constitutional Vitals: Temp Pulse Resp BP Pulse Ox 97.5 F L 72 18 105/62 95 09/10/16 17:19 09/10/16 17:19 09/10/16 17:19 09/10/16 17:19 09/10/16 17:19 General appearance: Present: mild distress - EENT Eyes: Present: PERRL, EOM intact - Neck Neck: Present: supple - Respiratory Respiratory: bilateral: diminished - Cardiovascular Rhythm: regular Heart Sounds: Present: S1 & S2 - Extremities Extremities: no ischemia Peripheral Pulses: within normal limits - Abdominal General gastrointestinal: soft, non-tender, non-distended - Integumentary Integumentary: Present: clear, dry - Psychiatric Psychiatric: appropriate mood/affect - Neurologic Neurologic: no CNII-XII intact, focal deficits, no moves all extremities, no gait normal Results - Labs CBC & Chem 7: 09/09/16 06:58 09/09/16 06:58 Labs: Laboratory Last Values WBC 4.5 K/mm3 (4.5-11.0) 09/09/16 06:58 RBC 4.62 M/mm3 (3.65-5.03) 09/09/16 06:58 Hgb 13.0 gm/dl (10.1-14.3) 09/09/16 06:58 Hct 39.6 % (30.3-42.9) 09/09/16 06:58 MCV 86 fl (79-97) D 09/09/16 06:58 MCH 28 pg (28-32) 09/09/16 06:58 MCHC 33 % (30-34) 09/09/16 06:58 RDW 14.0 % (13.2-15.2) 09/09/16 06:58 Plt Count 235 K/mm3 (140-440) 09/09/16 06:58 Lymph % (Auto) 31.3 % (13.4-35.0) 09/09/16 06:58 [place] % (Auto) 7.1 % (0.0-7.3) 09/09/16 06:58 Eos % (Auto) 2.6 % (0.0-4.3) 09/09/16 06:58 Baso % (Auto) 1.2 % (0.0-1.8) 09/09/16 06:58 Lymph # 1.4 K/mm3 (1.2-5.4) 09/09/16 06:58 [place] # 0.3 K/mm3 (0.0-0.8) 09/09/16 06:58 Eos # 0.1 K/mm3 (0.0-0.4) 09/09/16 06:58 Baso # 0.1 K/mm3 (0.0-0.1) 09/09/16 06:58 Seg Neutrophils % 57.8 % (40.0-70.0) 09/09/16 06:58 Seg Neutrophils # 2.6 K/mm3 (1.8-7.7) 09/09/16 06:58 D-Dimer 400.38 ng/mlDDU (0-234) H 09/08/16 04:06 Sodium 141 mmol/L (137-145) 09/09/16 06:58 Potassium 4.4 mmol/L (3.6-5.0) 09/09/16 06:58 Chloride 103.7 mmol/L (98-107) 09/09/16 06:58 Carbon Dioxide 22 mmol/L (22-30) 09/09/16 06:58 Anion Gap 20 mmol/L 09/09/16 06:58 BUN 9 mg/dL (7-17) 09/09/16 06:58 Creatinine 0.6 mg/dL (0.7-1.2) L 09/09/16 06:58 Estimated GFR > 60 ml/min 09/09/16 06:58 BUN/Creatinine Ratio 15.00 % 09/09/16 06:58 Glucose 81 mg/dL (65-100) 09/09/16 06:58 POC Glucose 91 (70-105) 09/08/16 08:00 Lactic Acid 2.1 mmol/L (0.7-2.0) H* 09/08/16 01:18 Calcium 9.9 mg/dL (8.4-10.2) 09/09/16 06:58 Magnesium 2.2 mg/dL (1.7-2.3) 09/07/16 22:19 Total Bilirubin 0.3 mg/dL (0.1-1.2) 09/07/16 22:19 AST 20 units/L (5-40) 09/07/16 22:19 ALT 10 units/L (7-56) 09/07/16 22:19 Alkaline Phosphatase 57 units/L (35-129) 09/07/16 22:19 Total Creatine Kinase 80 units/L (30-135) 09/07/16 22:19 CK-MB (CK-2) 1.3 ng/mL (0.0-4.0) 09/07/16 22:19 CK-MB (CK-2) Rel Index 1.6 (0-4) 09/07/16 22:19 Troponin T < 0.010 ng/mL (0.00-0.029) 09/07/16 22:19 Total Protein 7.1 g/dL (6.3-8.2) 09/07/16 22:19 Albumin 3.7 g/dL (3.9-5) L 09/07/16 22:19 Albumin/Globulin Ratio 1.1 % 09/07/16 22:19 TSH 5.080 mlU/mL (0.270-4.200) H 09/07/16 22:19 Urine Color Yellow (Yellow) 09/08/16 00:10 Urine Turbidity Clear (Clear) 09/08/16 00:10 Urine pH 6.0 (5.0-7.0) 09/08/16 00:10 Ur Specific [place] 1.017 (1.003-1.030) 09/08/16 00:10 Urine Protein <15 mg/dl mg/dL (Negative) 09/08/16 00:10 Urine Glucose (UA) Neg mg/dL (Negative) 09/08/16 00:10 Urine Ketones Neg mg/dL (Negative) 09/08/16 00:10 Urine Blood Sm (Negative) 09/08/16 00:10 Urine Nitrite Neg (Negative) 09/08/16 00:10 Urine Bilirubin Neg (Negative) 09/08/16 00:10 Urine Urobilinogen 2.0 mg/dL (<2.0) 09/08/16 00:10 Ur Leukocyte Esterase Neg (Negative) 09/08/16 00:10 Urine WBC (Auto) < 1.0 /HPF (0.0-6.0) 09/08/16 00:10 Urine RBC (Auto) 1.0 /HPF (0.0-6.0) 09/08/16 00:10 U Epithel Cells (Auto) 1.0 /HPF (0-13.0) 09/08/16 00:10 Urine Mucus Few /HPF 09/08/16 00:10 Salicylates < 0.3 mg/dL (2.8-20.0) L 09/07/16 22:19 Urine Opiates Screen Presumptive negative 09/08/16 00:10 Urine Methadone Screen Presumptive negative 09/08/16 00:10 Acetaminophen < 15.0 ug/mL (10.0-30.0) 09/07/16 22:19 Ur Barbiturates Screen Presumptive negative 09/08/16 00:10 Ur Phencyclidine Scrn Presumptive negative 09/08/16 00:10 Ur Amphetamines Screen Presumptive negative 09/08/16 00:10 U Benzodiazepines Scrn Presumptive negative 09/08/16 00:10 Urine Cocaine Screen Presumptive negative 09/08/16 00:10 U Marijuana (THC) Screen Presumptive negative 09/08/16 00:10 Drugs of Abuse Note Disclamer 09/08/16 00:10 Plasma/Serum Alcohol < 0.01 gm% (0-0.07) 09/07/16 22:19
[2016-09-10] MEDS: TYLENOL PO PRN (21:47)
[2016-09-10] MEDS: ZOCOR PO SCH (22:37)
--- NOTE | 2016-09-11 14:10 | Progress Note ---
Assessment and Plan Assessment and plan: 75-year-old female status post CVA currently hemodynamically stable requires evaluation for further therapy. Total Time Spent with Patient (Minutes): 28 min - Patient Problems (1) Altered mental status Current Visit: Yes Status: Acute Qualifiers: Altered mental status type: A Coma depth: C Coma timing: C Plan to address problem: Altered mental status I think this is secondary to dementia and not CVA. Patient is cognition fits pattern of dementia she is not aphasic she is eating no clear focal deficits just poor cognition. We need to discuss with family whether they want her to go to senior living facility versus back home. I think patient has had a certain degree of debility since her hospital stay. (2) CVA (cerebral vascular accident) Current Visit: Yes Status: Acute Qualifiers: CVA mechanism: C Precerebral and cerebral artery: P Laterality of affected vessel: L Plan to address problem: Patient has not received MRI yet to rule out a definitive CVA patient patient will require MRI to rule out CVA. Patient is max assist on physical exam. While I think this is most likely secondary to dementia and debility cannot clearly rule out CVA. Need to find out what patient's functional status was at the personal shelter. At this point we'll suggest skilled nurse facility for rehabilitation then transfer to a personal shelter. (3) HTN (hypertension) Current Visit: Yes Status: Acute Qualifiers: Hypertension type: H Plan to address problem: Patient has optimal control of blood pressure continue present management. (4) Multiple myeloma Current Visit: Yes Status: Acute Qualifiers: Multiple myeloma remission status: M Plan to address problem: Patient could be weak from multiple myeloma. Appears to be in remission now however given lab data. (5) Dementia Current Visit: Yes Status: Chronic Qualifiers: Dementia type: D Alzheimer's disease onset: A Dementia behavioral disturbance: D Plan to address problem: Patient appears to have an advancing dementia. Could've progressed after having CVA. We'll suggest change in medical management. This could be done on outpatient basis. History Interval history: Patient is without any acute distress now. Hospital course uncomplicated. Patient attempts to answer questions appropriately. Clearly has some problems with cognition cannot be certain because does not appear to be new or secondary to the CVA. Hospitalist Physical - Constitutional Vitals: Temp Pulse Resp BP Pulse Ox 97.9 F 68 16 105/59 98 09/11/16 08:00 09/11/16 08:00 09/11/16 08:00 09/11/16 08:00 09/11/16 05:15 General appearance: Present: mild distress - EENT Eyes: Present: PERRL, EOM intact - Neck Neck: Present: supple, normal ROM - Respiratory Respiratory effort: normal - Cardiovascular Rhythm: regular Heart Sounds: Present: S1 & S2 - Extremities Extremities: no ischemia, pulses intact, pulses symmetrical, No edema Extremity abnormal: edema Peripheral Pulses: within normal limits - Abdominal General gastrointestinal: soft, non-tender, non-distended, normal bowel sounds - Psychiatric Psychiatric: cooperative, other (poor cognition judgment is not intact.) - Neurologic Neurologic: focal deficits, other (generalized weakness) Results - Labs CBC & Chem 7: 09/09/16 06:58 09/09/16 06:58 Labs: Laboratory Last Values WBC 4.5 K/mm3 (4.5-11.0) 09/09/16 06:58 RBC 4.62 M/mm3 (3.65-5.03) 09/09/16 06:58 Hgb 13.0 gm/dl (10.1-14.3) 09/09/16 06:58 Hct 39.6 % (30.3-42.9) 09/09/16 06:58 MCV 86 fl (79-97) D 09/09/16 06:58 MCH 28 pg (28-32) 09/09/16 06:58 MCHC 33 % (30-34) 09/09/16 06:58 RDW 14.0 % (13.2-15.2) 09/09/16 06:58 Plt Count 235 K/mm3 (140-440) 09/09/16 06:58 Lymph % (Auto) 31.3 % (13.4-35.0) 09/09/16 06:58 [place] % (Auto) 7.1 % (0.0-7.3) 09/09/16 06:58 Eos % (Auto) 2.6 % (0.0-4.3) 09/09/16 06:58 Baso % (Auto) 1.2 % (0.0-1.8) 09/09/16 06:58 Lymph # 1.4 K/mm3 (1.2-5.4) 09/09/16 06:58 [place] # 0.3 K/mm3 (0.0-0.8) 09/09/16 06:58 Eos # 0.1 K/mm3 (0.0-0.4) 09/09/16 06:58 Baso # 0.1 K/mm3 (0.0-0.1) 09/09/16 06:58 Seg Neutrophils % 57.8 % (40.0-70.0) 09/09/16 06:58 Seg Neutrophils # 2.6 K/mm3 (1.8-7.7) 09/09/16 06:58 D-Dimer 400.38 ng/mlDDU (0-234) H 09/08/16 04:06 Sodium 141 mmol/L (137-145) 09/09/16 06:58 Potassium 4.4 mmol/L (3.6-5.0) 09/09/16 06:58 Chloride 103.7 mmol/L (98-107) 09/09/16 06:58 Carbon Dioxide 22 mmol/L (22-30) 09/09/16 06:58 Anion Gap 20 mmol/L 09/09/16 06:58 BUN 9 mg/dL (7-17) 09/09/16 06:58 Creatinine 0.6 mg/dL (0.7-1.2) L 09/09/16 06:58 Estimated GFR > 60 ml/min 09/09/16 06:58 BUN/Creatinine Ratio 15.00 % 09/09/16 06:58 Glucose 81 mg/dL (65-100) 09/09/16 06:58 POC Glucose 93 (70-105) 09/11/16 02:54 Lactic Acid 2.1 mmol/L (0.7-2.0) H* 09/08/16 01:18 Calcium 9.9 mg/dL (8.4-10.2) 09/09/16 06:58 Magnesium 2.2 mg/dL (1.7-2.3) 09/07/16 22:19 Total Bilirubin 0.3 mg/dL (0.1-1.2) 09/07/16 22:19 AST 20 units/L (5-40) 09/07/16 22:19 ALT 10 units/L (7-56) 09/07/16 22:19 Alkaline Phosphatase 57 units/L (35-129) 09/07/16 22:19 Total Creatine Kinase 80 units/L (30-135) 09/07/16 22:19 CK-MB (CK-2) 1.3 ng/mL (0.0-4.0) 09/07/16 22: CK-MB (CK-2) Rel Index 1.6 (0-4) 09/07/16 22: Troponin T < 0.010 ng/mL (0.00-0.029) 09/07/16 22: Total Protein 7.1 g/dL (6.3-8.2) 09/07/16 22: Albumin 3.7 g/dL (3.9-5) L 09/07/16 22: Albumin/Globulin Ratio 1.1 % 09/07/16 22: TSH 5.080 mlU/mL (0.270-4.200) H 09/07/16 22: Urine Color Yellow (Yellow) 09/08/16 00:10 Urine Turbidity Clear (Clear) 09/08/16 00:10 Urine pH 6.0 (5.0-7.0) 09/08/16 00:10 Ur Specific [place] 1.017 (1.003-1.030) 09/08/16 00:10 Urine Protein <15 mg/dl mg/dL (Negative) 09/08/16 00:10 Urine Glucose (UA) Neg mg/dL (Negative) 09/08/16 00:10 Urine Ketones Neg mg/dL (Negative) 09/08/16 00:10 Urine Blood Sm (Negative) 09/08/16 00:10 Urine Nitrite Neg (Negative) 09/08/16 00:10 Urine Bilirubin Neg (Negative) 09/08/16 00:10 Urine Urobilinogen 2.0 mg/dL (<2.0) 09/08/16 00:10 Ur Leukocyte Esterase Neg (Negative) 09/08/16 00:10 Urine WBC (Auto) < 1.0 /HPF (0.0-6.0) 09/08/16 00:10 Urine RBC (Auto) 1.0 /HPF (0.0-6.0) 09/08/16 00:10 U Epithel Cells (Auto) 1.0 /HPF (0-13.0) 09/08/16 00:10 Urine Mucus Few /HPF 09/08/16 00:10 Salicylates < 0.3 mg/dL (2.8-20.0) L 09/07/16 22:19 Urine Opiates Screen Presumptive negative 09/08/16 00:10 Urine Methadone Screen Presumptive negative 09/08/16 00:10 Acetaminophen < 15.0 ug/mL (10.0-30.0) 09/07/16 22:19 Ur Barbiturates Screen Presumptive negative 09/08/16 00:10 Ur Phencyclidine Scrn Presumptive negative 09/08/16 00:10 Ur Amphetamines Screen Presumptive negative 09/08/16 00:10 U Benzodiazepines Scrn Presumptive negative 09/08/16 00:10 Urine Cocaine Screen Presumptive negative 09/08/16 00:10 U Marijuana (THC) Screen Presumptive negative 09/08/16 00:10 Drugs of Abuse Note Disclamer 09/08/16 00:10 Plasma/Serum Alcohol < 0.01 gm% (0-0.07) 09/07/16 22:19
[2016-09-11] MEDS: LOVENOX SUB-Q SCH (15:41)
[2016-09-11] MEDS: BABY ASPIRIN PO SCH (15:45)
[2016-09-11] MEDS: ZOCOR PO SCH (22:41)
--- NOTE | 2016-09-12 07:34 | Discharge Summary ---
Providers - Providers Date of Admission: 09/08/16 03:42 Date of discharge: 09/12/16 Attending physician: SHAY BALDERAS 09/10/16 07:47 Speech Therapy Evaluation and Treat [CONS] Routine Reason For Exam: Patient pockets food and drink. 09/10/16 10:48 Physical Therapy Evaluation and Treat [CONS] Routine Comment: Reason For Exam: cva, weakness Primary care physician: TRICK RODEO RIDER Hospitalization Condition: Poor Pertinent studies: CT scan of head which was unremarkable for new CVA. Hospital course: Patient Ms. Moncada presented with altered mental status. At present thought patient may have had a CVA however initial workup was negative for CVA and patient returned back to her baseline. This was thought to be secondary to dementia. Patient had poor functional status and was max assist. After interview with nursing facility personal senior care they stated that patient was max assist and at baseline. They will come would taken patient back as she is at her baseline and they cannot handle her we'll then send it to long term facility but there will comfortable that they can handle patient and her state. Patient is alert but demented. This altered mental status most likely secondary to dementia. Disposition: DISCHARGED TO HOME OR SELFCARE - Discharge Diagnoses (1) Altered mental status Status: Acute Qualifiers: Altered mental status type: A Coma depth: C Coma timing: C Comment: Continue to dementia ruled out CVA. (2) CVA (cerebral vascular accident) Status: Acute Qualifiers: CVA mechanism: C Precerebral and cerebral artery: P Laterality of affected vessel: L Comment: pesents with old CVA nonacute. (3) HTN (hypertension) Status: Acute Qualifiers: Hypertension type: H Comment: Patient blood pressure currently optimal control no changes in management. (4) Multiple myeloma Status: Acute Qualifiers: Multiple myeloma remission status: M Comment: She has multiple myeloma overall prognosis is poor. I do not think this caused patient's altered mental status. Patient is at baseline remains weak max assist may be playing some role. Appear to be a candidate for any treatment options at this point. (5) Dementia Status: Chronic Qualifiers: Dementia type: D Alzheimer's disease onset: A Dementia behavioral disturbance: D Comment: She'll with advancing dementia. She was altered because of this. Maintains poor cognition. Dementia has advanced. Core Measure Documentation - Palliative Care Palliative Care/ Comfort Measures: Not Applicable - Core Measures Any of the following diagnoses?: none Exam - Constitutional Vitals: Temp Pulse Resp BP Pulse Ox 97.8 F 80 20 118/63 94 09/12/16 05:00 09/12/16 05:00 09/12/16 05:00 09/12/16 05:00 09/12/16 00:00 General appearance: Present: no acute distress, well-nourished - EENT Eyes: Present: PERRL ENT: hearing intact, clear oral mucosa - Neck Neck: Present: supple, normal ROM - Respiratory Respiratory effort: normal Respiratory: bilateral: CTA - Cardiovascular Heart Sounds: Present: S1 & S2. Absent: rub, click - Extremities Extremities: pulses symmetrical, No edema Peripheral Pulses: within normal limits - Abdominal General gastrointestinal: Present: soft, non-tender, non-distended, normal bowel sounds Female genitourinary: Present: normal - Integumentary Integumentary: Present: clear, warm, dry - Musculoskeletal Musculoskeletal: generalized weakness, other (max assist) - Psychiatric Psychiatric: appropriate mood/affect, intact judgment & insight - Neurologic Neurologic: CNII-XII intact, moves all extremities, other (poor cognition) Plan Weight Bearing Status: Partial Weight Bearing Diet: low salt Special Instructions: physical therapy Follow up with: PRIMARY CARE, [Primary Care Provider] - 3-5 Days Prescriptions: Aspirin [Aspirin BABY CHEW TAB] 81 mg PO QDAY #30 tab.chew Aspirin [Aspirin BABY CHEW TAB] 81 mg PO QDAY #30 tab.chew metroNIDAZOLE [Flagyl TAB] 500 mg PO Q8HR #15 tablet Simvastatin [Zocor TAB] 20 mg PO QHS #30 tablet
[2016-09-12] MEDS: LOVENOX SUB-Q SCH (10:00)
[2016-09-12] MEDS: BABY ASPIRIN PO SCH (10:00)
[2016-09-12 16:31] VITALS: BP 113/62
== END 2016-09-12 14:51 | disposition home or self-care (01) | DRG 884 ==
LOC: ED 21:08 → 4A 09-08 03:42
PROVIDERS: ADMIT Internal Medicine; ATTEND Internal Medicine
DX: F03.90 Unspecified dementia, unspecified severity, without behavioral disturbance, psychotic disturbance, mood disturbance, and anxiety (principal); C90.00 Multiple myeloma not having achieved remission; I10 Essential (primary) hypertension; Z79.82 Long term (current) use of aspirin
CPT/HCPCS: 36415; 70450; 80048; 80053; 80307; 80320; 81001; 82140; 82550; 82553; 82962; 83735; 84443; 84484; 85025; 85379; 93005; 93010; 96360; 96372; G0480; G8978-GP; G8979-GP; G8980-GP; G8996-GN; G8997-GN; G8998-GN; J1650; J7030